=== PATIENT | male | born 1960 | race Caucasian/White ===

== ENCOUNTER 2016-08-23 19:19 | Emergency (ER) | payer MEDICARE ==
[~2016-08-23 19:19] MED LIST: LORTAB10 PO; METHOTREXATE; P10 PO; PROVHFA INH
== END 2016-08-23 20:04 | disposition home or self-care (01) ==
LOC: ER 19:19
DX: S05.02XA Injury of conjunctiva and corneal abrasion without foreign body, left eye, initial encounter (principal); Z79.899 Other long term (current) drug therapy; Z79.52 Long term (current) use of systemic steroids; X58.XXXA Exposure to other specified factors, initial encounter
CPT/HCPCS: 99283; A9270-GY